=== PATIENT | female | born 1975 | race Caucasian/White ===

== ENCOUNTER 2021-04-20 10:01 | Emergency (ER) | payer OTHER, SELFPAY ==
[2021-04-20 10:14] VITALS: BP 136/88; PULSE 92; RESP 16; TEMP 37.2; O2SAT 100
--- NOTE | 2021-04-20 10:19 | ED.GENADULT ---
HPI - General Adult General Chief complaint: Skin/Abscess/Foreign Body Stated complaint: shingles Time Seen by Provider: 04/20/21 10:19 Source: patient and RN notes reviewed Mode of arrival: ambulatory Limitations: no limitations History of Present Illness HPI narrative: 45-year-old female presents with complaints of a cluster of scabbed over lesions with pain, redness, and itching throughout the back for the past 21 days. ?Bushra reports increasing symptoms over the past 1.5 week with intermittent drainage and mild warmth. ?Psoriasis cream without relief. ?Denies new detergent or personal hygiene products. ?No new foods or medications. ?No swelling or bleeding. ?Denies fever or chills, headaches, weakness, fatigue, myalgia, facial swelling, or tongue swelling. ?Denies chest pain or dyspnea. ?Remains active. The patient reports she has not been diagnosed with COVID-19. ?The patient reports she is not waiting for the results of a COVID-19 lab test. ?The patient reports she does not have a new or worsening cough. ?The patient reports she does not have any rhinorrhea, congestion, sore throat, loss of taste or smell, nausea, vomiting, abdominal pain, and diarrhea. ?Tolerating po intake well. ?Denies recent traveling. ?Denies concerns for COVID-19 or exposures. ?At this time, the patient is not suspected of having COVID-19. Some parts of this dictation were generated by voice recognition software and may contain typographical and/or grammatical inaccuracies. Related Data Home Medications Medication Instructions Recorded Confirmed buspirone 7.5 mg PO BID 04/20/21 04/20/21 escitalopram oxalate 10 mg PO DAILY 04/20/21 04/20/21 Allergies Allergy/AdvReac Type Severity Reaction Status Date / Time No Known Allergies Allergy Verified 04/20/21 10:34 Review of Systems Review of Systems: CONSTITUTIONAL: Denies fever, chills, sweats. EYES: Denies visual changes, redness, discharge. ENT: Denies rhinorrhea, congestion, sore throat, otalgia. CARDIOVASCULAR: Denies chest pain, palpitations, edema. RESPIRATORY: Denies dyspnea, wheezing, cough. GASTROINTESTINAL: Denies abdominal pain, nausea, vomiting, diarrhea. SKIN: Complaints of a cluster of scabbed over lesions with pain, redness, itching, intermittent drainage, and warmth. MUSCULOSKELETAL: Denies acute back pain, joint pain, or myalgia. NEUROLOGIC: Denies numbness or focal weakness. PSYCHIATRIC: Denies anxiety or depression. All other systems reviewed are negative, except as documented in HPI and below. [facility] Past Medical History Medical History (Updated 04/23/21 @ 01:03 by LG Stovall) Psoriasis Surgical History Surgical History (Updated 04/23/21 @ 01:03 by LG Stovall) History of tubal ligation Family History Family History (Updated 04/23/21 @ 01:05 by LG Stovall) Father Diabetes mellitus Mother Alive and well Social History Social History (Updated 04/23/21 @ 01:07 by LG Stovall) Smoking packs per day: 1 Smoking cigarettes per day: 20.0 Years smoked: 20 Smoking pack-years: 20.00 Smoking status: Current every day smoker Tobacco type: cigarettes Second hand tobacco smoke exposure: Yes Alcohol intake: current Substance use: never Substance use type: does not use Living arrangements: with family Occupation/Education: occupation Gender identity (if verbalized by the patient): Female Sexual Orientation (if Verbalized by the Patient): Straight or Heterosexual Comments At time of signature, agree with the nurse past medical, surgical, social, and family history. There is no relevant family history pertinent to the presenting complaint. Exam Narrative: GENERAL: This is a well-nourished, well-developed patient, in no apparent distress. Talks in full sentences and ambulates with steady gait without dyspnea. HEAD: Normocephalic, atraumatic. EYES: PERRL. Sclera clear/white. Vision is g
--- NOTE | 2021-04-20 11:33 | PC.NURSE ---
Received fax from [employer] that pts insurance requiring prior authorization for mupirocin ointment. Called and discussed with pt cost of medication through [employer] at different local pharmacies. Pt ok with still getting mediation at [facility]. Pt instructed how to access coupon information that pharmacy will need to run prescription through to get discount. Pt verbalized understanding of how to access [facility] info.
== END 2021-04-20 10:39 | disposition home or self-care (01) ==
PROVIDERS: Emergency Provider Nurse Practitioner Family; PCP Nurse Practitioner Family
DX: L01.00 Impetigo, unspecified (principal); F17.210 Nicotine dependence, cigarettes, uncomplicated; L40.9 Psoriasis, unspecified
CPT/HCPCS: 99213; G0463

== ENCOUNTER 2023-01-08 09:28 | Emergency (ER) | payer OTHER, SELFPAY ==
[2023-01-08 09:38] VITALS: BP 150/86; PULSE 97; RESP 20; TEMP 36.6; O2SAT 99
--- NOTE | 2023-01-08 10:01 | ED.URI ---
HPI - URI/Sore Throat General Chief Complaint: Upper Respiratory Infection Stated Complaint: Sore Throat Time Seen by Provider: 01/08/23 09:54 Source: patient Mode of arrival: ambulatory Limitations: no limitations History of Present Illness HPI Narrative: Patient presents today complaining of an itchy and sore throat since yesterday with congestion, rhinorrhea, and postnasal drip. Denies cough. She has been taking ibuprofen with relief of the sore throat. History of seasonal allergies for which she occasionally takes [id number] allergy medicine. Denies history of asthma. Works in a school. Related Data Home Medications Medication Instructions Recorded Confirmed buspirone 7.5 mg tablet 7.5 mg PO BID 04/20/21 01/08/23 escitalopram oxalate 10 mg tablet 10 mg PO DAILY 04/20/21 01/08/23 Allergies Allergy/AdvReac Type Severity Reaction Status Date / Time No Known Allergies Allergy Verified 01/08/23 09:45 Review of Systems Review of Systems: CONSTITUTIONAL: Denies body aches, fever, chills, or sweats. EYES: Denies visual changes, redness, or discharge. ENT: Denies otalgia.+ rhinorrhea, congestion, sore throat, postnasal drip CARDIOVASCULAR: Denies chest pain, palpitations, or edema. RESPIRATORY: Denies cough or dyspnea. GASTROINTESTINAL: Denies abdominal pain, nausea, vomiting, or diarrhea. GENITOURINARY: Denies dysuria or hematuria. SKIN: Denies rash, itching, or wounds. MUSCULOSKELETAL: Denies back pain, joint pain, or myalgia. NEUROLOGIC: Denies headache, numbness, tingling, or weakness. PSYCH: Denies depression or anxiety. [facility] Past Medical History Medical History Psoriasis Surgical History Surgical History History of tubal ligation Family History Family History Father Diabetes mellitus Mother Alive and well Social History Social History Smoking packs per day: 1 Smoking cigarettes per day: 20.0 Years smoked: 20 Smoking pack-years: 20.00 Smoking status: Current every day smoker Tobacco type: cigarettes Second hand tobacco smoke exposure: Yes Alcohol intake: current Substance use: never Substance use type: does not use Living arrangements: with family Occupation/Education: occupation Gender identity (if verbalized by the patient): Female Sexual Orientation (if Verbalized by the Patient): Straight or Heterosexual Comments At time of signature, I have reviewed and agree with nursing past medical, surgical, social and family history unless otherwise noted. Please see nursing chart for further information. There is no relevant family history pertinent to the presenting complaint Exam Narrative: GENERAL: Well-appearing, well-nourished, and in no acute distress. HEAD: Normocephalic, atraumatic. EYES: EOMI. No redness or drainage. Conjunctivae normal. ENT: Mucous membranes pink and moist. Nares congested with rhinorrhea. TMs normal bilaterally. Throat mildly erythematous without edema or exudate. Uvula midline. NECK: Normal AROM. Supple. No lymphadenopathy. CHEST: No respiratory distress. Clear to auscultation. HEART: Regular rate and rhythm. No murmur appreciated. Normal peripheral pulses. EXTREMITIES: Normal range of motion. No edema. SKIN: Warm, dry, no rash. Capillary refill normal. Normal skin turgor. NEURO: No focal deficits. Alert and oriented x3. Gait steady. PSYCH: Normal affect. No signs of depression or anxiety. Course Course Level of Care: Express Care Visit Vital Signs Vital signs: Vital Signs Temperature 97.9 F 01/08/23 09:38 Pulse Rate 97 01/08/23 09:38 Respiratory Rate 20 01/08/23 09:38 Blood Pressure 150/86 H 01/08/23 09:38 Pulse Oximetry 99 01/08/23 09:38 Oxygen D
== END 2023-01-08 10:11 | disposition home or self-care (01) ==
PROVIDERS: Emergency Provider Nurse Practitioner; PCP Nurse Practitioner Family
DX: J30.2 Other seasonal allergic rhinitis (principal); F17.210 Nicotine dependence, cigarettes, uncomplicated; L40.9 Psoriasis, unspecified
CPT/HCPCS: 87081; 87880; 99213; G0463

== ENCOUNTER 2024-06-27 08:44 | Emergency (ER) | payer OTHER, SELFPAY ==
--- NOTE | ~2024-06-27 | XR_ITS ---
XR chest 2V Ordering provider: Genia Rose APRN History: 48 years Female with . chest palpitations . Comparison: June 09, 2017 FINDINGS: MEDIASTINUM: The cardiac silhouette is not enlarged. LUNGS: No infiltrates, effusions or pneumothorax. OTHER: No free air under the diaphragm. IMPRESSION: No acute cardiopulmonary pathology. Reviewed, dictated and finalized at location A.
[2024-06-27 08:53] VITALS: BP 174/106; PULSE 94; RESP 16; O2SAT 100
--- NOTE | 2024-06-27 09:32 | ECG_ITS ---
Test Date: 2024-06-27 09:54:03 Measurements Intervals [place] Rate: 82 P: 16 NV: 176 QRS: 69 QRSD: 76 T: 20 QT: 379 QTc: 443 Interpretive Statements SINUS RHYTHM No previous ECG available for comparison Electronically Signed On 06-27-2024 12:40:52 CDT by Wu Chong M.D.
[2024-06-27 09:35] VITALS: BP 153/91; PULSE 76; RESP 15; TEMP 36.9; O2SAT 100
[2024-06-27] MEDS: SODIUM CHLORIDE 0.9% IV 1,000 ML 999 ML IV CONT (09:46)
--- NOTE | 2024-06-27 09:46 | ED.DIZZY ---
HPI - Dizziness General Chief Complaint: Recheck/Abnormal Lab/Rx Stated Complaint: HTN Time Seen by Provider: 06/27/24 09:01 History of Present Illness HPI Narrative: Patient is a 48-year-old female who presents to the ER with dizziness that started this morning. She reports she was at work and started feeling lightheaded. Patient went down to the school nurse who took her blood pressure and told her it was high. She reports this made her panicky and she thinks she started to have a panic attack. Patient reports her heart rate went up and she had some palpitations but no shortness of breath. She reports she has history of neuropathy, and vertigo, but this feels different. Patient reports she drinks very little water during the day, but reports she drinks alcohol most days of the week. She is an everyday smoker. Patient has never been diagnosed with blood pressure or COPD. She denies current chest pain, shortness a breath, or other signs/symptoms of illness. Related Data Home Medications Medication Instructions Recorded Confirmed buspirone 7.5 mg tablet 7.5 mg PO BID 04/20/21 01/08/23 escitalopram oxalate 10 mg tablet 10 mg PO DAILY 04/20/21 01/08/23 Allergies Allergy/AdvReac Type Severity Reaction Status Date / Time No Known Allergies Allergy Verified 06/27/24 09:11 Review of Systems Review of Systems: All systems reviewed & are unremarkable except as noted in HPI and below PMFSH Past Medical History Medical History Psoriasis Surgical History Surgical History History of tubal ligation Family History Family History Father Diabetes mellitus Mother Alive and well Social History Social History Smoking packs per day: 1 Smoking cigarettes per day: 20.0 Years smoked: 20 Smoking pack-years: 20.00 Smoking status: Current every day smoker Tobacco type: cigarettes Second hand tobacco smoke exposure: Yes Alcohol intake: current Substance use: never Substance use type: does not use Living arrangements: with family Occupation/Education: occupation Gender identity (if verbalized by the patient): Female Sexual Orientation (if Verbalized by the Patient): Straight or Heterosexual Exam Narrative: GENERAL: Well appearing, well-nourished, non-toxic, in no acute distress. HEAD: Normocephalic, atraumatic. NECK: Supple. No adenopathy, no masses. RESPIRATORY: Airway patent, respirations nonlabored. Clear to auscultation bilaterally, no rales, rhonchi, wheezing. CARDIOVASCULAR: Regular rate and rhythm without murmurs, rubs, or gallops. Peripheral pulses 2+ and equal bilaterally. ABDOMINAL: Soft, nontender, nondistended, no hepatosplenomegaly. Normoactive BS. MUSCULOSKELETAL: Moves all extremities. Strength/ROM intact without gross deformities. SKIN: Warm, dry, normal color. No rashes. NEURO: A&O X3. Speech clear. Cranial nerves II-XII grossly intact. Steady gait. No ataxic movements. PSYCHIATRIC: Appropriate mood and affect. Normal interaction. Course Vital Signs Vital signs: Vital Signs Pulse Rate 94 06/27/24 08:53 Respiratory Rate 16 06/27/24 08:53 Blood Pressure 174/106 H 06/27/24 08:53 Pulse Oximetry 100 06/27/24 08:53 Oxygen Delivery Room Air 06/27/24 08:53 Temperature 36.9 C 06/27/24 09:35 Pulse Rate 89 06/27/24 10:04 Respiratory Rate 15 06/27/24 09:35 Blood Pressure 148/92 H 06/27/24 10:04 Pulse Oximetry 100 06/27/24 09:35 Oxygen Delivery Room Air 06/27/24 08:53 MDM - Dizziness MDM Narrative Medical decision making narrative: Patient is a 48-year-old female who presents to the ER with dizziness that started this morning. She reports she was at work and started feeling lighthead
[2024-06-27 09:54] LABS: Basophils Absolute Auto 0.1 K/mm3 (0.0-0.1); Basophils Percent Auto 1.4 % (0.2-1.2); Eosinophils Absolute Auto 0.2 K/mm3 (0-0.3); Eosinophils Percent Auto 1.6 % (0-4.4); Hematocrit 42.1 % (37.0-47.0); Hemoglobin 14.5 g/dL (12.0-15.0); Immature Granulocyte Absolute 0.06 K/mm3 (0.00-0.031); Immature Granulocyte Percent A 0.7 % (0-0.5); Lymphocytes Absolute Auto 1.52 K/mm3 (0.9-3.2); Lymphocytes Percent Auto 16.5 % (18.3-44.2); Mean Corpuscular HGB Conc 34.4 g/dl (32-36); Mean Corpuscular Hemoglobin 33.8 pg (26-34); Mean Corpuscular Volume 98.1 fl (80-100); Mean Platelet Volume 10.4 fl (7.4-10.4); Monocytes Absolute Auto 0.6 K/mm3 (0.1-0.6); Monocytes Percent Auto 6.9 % (2.6-8.5); Neutrophils Absolute Auto 6.7 K/mm3 (1.3-6.7); Neutrophils Percent Auto 72.9 % (45.5-73.1); Platelet Count Result 196 k/mm3 (150-375); Red Blood Count 4.29 M/mm3 (4.2-5.4); Red Cell Distribution Width 13.1 % (11.5-14.5); White Blood Count 9.2 K/mm3 (4.5-10.0)
[2024-06-27 09:58] LABS: BEDSIDEPREGUCG Negative (Negative)
[2024-06-27 10:01] VITALS: BP 154/92; PULSE 80
[2024-06-27 10:03] VITALS: BP 157/90; PULSE 94
[2024-06-27 10:04] VITALS: BP 148/92; PULSE 89
[2024-06-27 10:04] LABS: INR 0.9; Lactic Acid Reflex 1.1 mmol/L (0.7-2.0); Prothrombin Time 12.2 Seconds (11.1-14.7)
[2024-06-27 10:05] LABS: Partial Thromboplastin Time 26.5 Seconds (22.3-36.8)
[2024-06-27 10:09] LABS: Alanine Aminotransferase 25 U/L (6-35); Albumin Level 4.6 g/dL (3.5-5.1); Alkaline Phosphatase 64 U/L (38-126); Anion Gap 9 mmol/L (4-12); Aspartate Amino Transferase 43 U/L (14-36); Bilirubin,Total 0.4 mg/dL (0.2-1.3); Blood Urea Nitrogen 5 mg/dL (7-17); Calcium 9.3 mg/dL (8.4-10.2); Carbon Dioxide 21 mmol/L (22-30); Chloride 104 mmol/L (98-107); Estimated Glomerular Filt Rate > 60; Glucose 97 mg/dL (65-110); Magnesium 1.9 mg/dL (1.6-2.3); Sodium 134 mmol/L (137-145)
[2024-06-27 10:10] LABS: D Dimer 0.45 ug/mL (<0.48)
[2024-06-27 10:12] LABS: Add Urine Microscopic? YES; Appearance Urine Cloudy (Clear); Bacteria Urine Rare /hpf; Bilirubin Urine Negative (Negative); Blood Urine Negative (Negative); Color Urine Yellow (Yellow); Glucose Urine UA Negative (Negative); Ketones Urine Negative (Negative); Leukocyte Esterase Ur 1+ LEU/UL (Negative); Need Manual Microscopic Reviewed; Nitrate Urine Negative (Negative); Non Pathogenic Casts 0-2; Protein Urine Negative (Negative); RBC Urine 0-2 /hpf (0-2); Specific Grav Ur 1.005 (1.001-1.035); Squamous Epithelial Cell Urine Moderate /hpf (Few); Urobilinogen Urine 0.2 mg/dL (<2.0); WBC Urine 0-5 /hpf (0-3); pH Urine 5.5 (5.0-9.0)
[2024-06-27 10:16] LABS: Amphetamine Screen Urine Negative (Negative); Barbiturate Screen Urine Negative (Negative); Benzodiazepines Screen Urine Negative (Negative); Cannabinoid Screen Urine Negative (Negative); Cocaine Screen Urine Negative (Negative); Methadone Screen Urine Negative (Negative); Opiate Screen Urine Negative (Negative); Phencyclidine Screen Urine Negative (Negative)
[2024-06-27 10:20] LABS: NT Pro B Type Natriuretic Pept 171 pg/mL (19.9-100); Troponin I < 0.012 ng/mL (0.000-0.034)
[2024-06-27 10:31] LABS: Influenza A QL RT-PCR Negative (Negative); Influenza B QL RT-PCR Negative (Negative); RSV RNA, RT-PCR Negative (Negative); SARS-CoV-2 RNA PCR Negative (Negative)
[2024-06-27] MEDS: MECLIZINE HCL 25 MG TABLET PO (11:22)
== END 2024-06-27 11:31 | disposition home or self-care (01) ==
PROVIDERS: Emergency Provider Registered Nurse; PCP Family Medicine
DX: E86.0 Dehydration (principal); H81.10 Benign paroxysmal vertigo, unspecified ear; I10 Essential (primary) hypertension; Z20.822 Contact with and (suspected) exposure to COVID-19; F17.210 Nicotine dependence, cigarettes, uncomplicated
CPT/HCPCS: 36415; 71046; 80053; 80307; 81001; 81025; 83605; 83735; 83880; 84484; 85025; 85380; 85610; 85730; 87086; 87637; 93005; 96360; 99284; A9270; J7030

== ENCOUNTER 2025-01-23 09:47 | Emergency (ER) | payer SELFPAY ==
--- NOTE | ~2025-01-23 | XR_ITS ---
Portable chest x-ray Comparison: 06/27/2024 Clinical History: Weakness Findings: Lungs are clear, without focal consolidation or pleural effusion. Cardiomediastinal silho uette is stable. Bones and soft tissues are unremarkable. Impression: Normal chest. Reviewed, dictated and finalized at location . Impression: Normal chest.
--- NOTE | ~2025-01-23 | CT_ITS ---
CT brain wo con Ordering provider: Dmitry Philip MD History: 49 years Female with . headache, blurry vision . Comparison: None. Technique: CT of the head without contrast. Radiation reduction technique utilized.The dose-length pr oduct was 529.67 mGy-cm. FINDINGS: BRAIN PARENCHYMA AND CSF SPACES: No midline shift, mass effect or hemorrhage. The brain parenchyma a nd CSF spaces are otherwise normal. VISUALIZED PARANASAL SINUSES: Well aerated. MASTOIDS: Well aerated. BONES: The bones appear intact. SOFT TISSUES: Visualized nasopharynx is normal. Superficial soft tissues are normal. IMPRESSION: No acute intracranial findings. Reviewed, dictated and finalized at location A.
[2025-01-23 09:50] VITALS: BP 172/124; PULSE 88; RESP 16; TEMP 36.6; O2SAT 100
--- NOTE | 2025-01-23 10:31 | ECG_ITS ---
Test Date: 2025-01-23 10:38:27 Measurements Intervals [place] Rate: 79 P: 17 NV: 183 QRS: 60 QRSD: 74 T: 23 QT: 388 QTc: 446 Interpretive Statements SINUS RHYTHM Compared to ECG 06/27/2024 09:54:03 No significant changes Electronically Signed On 01-23-2025 15:02:41 CDT by Wu Chong M.D.
[2025-01-23 10:36] VITALS: BP 160/95; PULSE 81; RESP 14; O2SAT 100
[2025-01-23 10:41] LABS: Glucose Point of Care 98 mg/dl (65-105)
[2025-01-23 10:43] LABS: Basophils Absolute Auto 0.1 K/mm3 (0.0-0.1); Basophils Percent Auto 1.1 % (0.2-1.2); Eosinophils Absolute Auto 0.1 K/mm3 (0-0.3); Eosinophils Percent Auto 1.4 % (0-4.4); Hematocrit 41.2 % (37.0-47.0); Hemoglobin 13.6 g/dL (12.0-15.0); Immature Granulocyte Absolute 0.04 K/mm3 (0.00-0.031); Immature Granulocyte Percent A 0.4 % (0-0.5); Lymphocytes Absolute Auto 1.87 K/mm3 (0.9-3.2); Mean Corpuscular Hemoglobin 32.5 pg (26-34); Mean Corpuscular Volume 98.6 fl (80-100); Mean Platelet Volume 10.2 fl (7.4-10.4); Monocytes Absolute Auto 0.6 K/mm3 (0.1-0.6); Monocytes Percent Auto 6.6 % (2.6-8.5); Neutrophils Absolute Auto 6.6 K/mm3 (1.3-6.7); Neutrophils Percent Auto 70.5 % (45.5-73.1); Platelet Count Result 231 k/mm3 (150-375); Red Blood Count 4.18 M/mm3 (4.2-5.4); Red Cell Distribution Width 12.7 % (11.5-14.5); White Blood Count 9.4 K/mm3 (4.5-10.0)
[2025-01-23 10:46] LABS: BEDSIDEPREGUCG Negative (Negative)
[2025-01-23 10:49] VITALS: PULSE 77
[2025-01-23 10:53] VITALS: BP 158/97; PULSE 81; RESP 14; O2SAT 99
[2025-01-23 10:54] LABS: Alanine Aminotransferase 24 U/L (6-35); Albumin Level 4.5 g/dL (3.5-5.1); Alkaline Phosphatase 66 U/L (38-126); Anion Gap 10 mmol/L (4-12); Aspartate Amino Transferase 36 U/L (14-36); Bilirubin,Total 0.4 mg/dL (0.2-1.3); Blood Urea Nitrogen 4 mg/dL (7-17); Calcium 8.9 mg/dL (8.4-10.2); Carbon Dioxide 21 mmol/L (22-30); Chloride 102 mmol/L (98-107); Estimated CRCL calculation 88 ml/min; Estimated Glomerular Filt Rate > 60; Glucose 101 mg/dL (65-110); Sodium 133 mmol/L (137-145)
--- NOTE | 2025-01-23 11:07 | ED.HA ---
HPI - Headache General Chief Complaint: Headache Stated Complaint: h/a, trouble walking started at 0900 Time Seen by Provider: 01/23/25 11:05 Source: patient and family Mode of arrival: ambulatory Limitations: no limitations History of Present Illness HPI Narrative: 49 YEARS OLD WHITE FEMALE CAME TO THE ED BY PRIVATE CAR WITH SUDDEN ONSET OF WHAT SHE CALL IT BRAIN GLITCH, WEAKNESS AND HEAVINESS OF THE LOWER EXTREMITIES, JITTERY FEELING INSIDE, SHAKING OUTSIDE, FEELING TIRED AND WEAK ALL OVER STARTED AT 9:00 A.M. BEFORE GOING TO WORK. PATIENT HAVE A LOT OF STRESS AT WORK LATELY. HISTORY OF ANXIETY AND DEPRESSION. SHE DENIES ANY FEVER, CHILLS, NAUSEA, VOMITING, DIARRHEA, CONSTIPATION, CHEST PAIN OR SHORTNESS OF BREATH. PATIENT'S SYMPTOMS ALMOST DONE ON ARRIVAL TO THE ED. Related Data Home Medications ?Medication ?Instructions ?Recorded ?Confirmed ?Last Taken ?Type buspirone 7.5 mg tablet 7.5 mg PO BID 04/20/21 01/08/23 Unknown History escitalopram oxalate 10 mg tablet 10 mg PO DAILY 04/20/21 01/08/23 Unknown History Allergies Allergy/AdvReac Type Severity Reaction Status Date / Time No Known Allergies Allergy Verified 01/23/25 09:52 Review of Systems Review of Systems: All systems reviewed & are unremarkable except as noted in HPI and below PMFSH Past Medical History Medical History Psoriasis Surgical History Surgical History History of tubal ligation Family History Family History Father Diabetes mellitus Mother Alive and well Social History Social History Smoking packs per day: 1 Smoking cigarettes per day: 20.0 Years smoked: 20 Smoking pack-years: 20.00 Smoking status: Current every day smoker Tobacco type: cigarettes Second hand tobacco smoke exposure: Yes Alcohol intake: current Substance use: never Substance use type: does not use Living arrangements: with family Occupation/Education: occupation Gender identity (if verbalized by the patient): Female Sexual Orientation (if Verbalized by the Patient): Straight or Heterosexual Exam Narrative: GENERAL APPEARANCE: WELL-DEVELOPED, WELL-NOURISHED SKIN: NORMAL COLOR HEAD: NORMOCEPHALIC, NONTRAUMATIC EYES: CLEAR CONJUNCTIVA ENT: OROPHARYNX NORMAL, EARS NORMAL, NOSE NORMAL NECK: SUPPLE, NONTENDER CHEST AND RESPIRATORY: AIRWAY PATENT, NO RESPIRATORY DISTRESS, NO ACCESSORY MUSCLE USE HEART: REGULAR RATE/RHYTHM ABDOMEN: SOFT, NONTENDER, NO ORGANOMEGALY, QUIET BOWEL SOUNDS VASCULAR: NORMAL PERIPHERAL PULSES, NORMAL CAPILLARY REFILL. MUSCULOSKELETAL: NORMAL RANGE OF MOTION, NONTENDER BACK NEUROLOGIC: ALERT AND ORIENTED ?3, DEVELOPER DESIGNER IS NORMAL TESTED, NO GROSS MOTOR DEFICIT Course Vital Signs Vital signs: Vital Signs Temperature 36.6 C 01/23/25 09:50 Pulse Rate 88 01/23/25 09:50 Respiratory Rate 16 01/23/25 09:50 Blood Pressure 172/124 H 01/23/25 09:50 Pulse Oximetry 100 01/23/25 09:50 Oxygen Delivery Room Air 01/23/25 09:50 Temperature 36.6 C 01/23/25 09:50 Pulse Rate 72 01/23/25 11:52 Respiratory Rate 12 01/23/25 11:52 Blood Pressure 153/98 H 01/23/25 11:52 Pulse Oximetry 100 01/23/25 11:52 Oxygen Delivery Room Air 01/23/25 09:50 MDM - Headache MDM Narrative Medical decision making narrative: PATIENT CAME TO THE ED WITH HEADACHE VITAL SIGNS SHOWING BLOOD PRESSURE 172/124 OTHERWISE WITHIN NORMAL LIMIT PHYSICAL EXAMINATION IS UNREMARKABLE DIFFERENTIAL DIAGNOSIS INCLUDE ANXIETY RELATED SYMPTOMS, UNCONTROLLED HYPERTENSION SECONDARY TO NOT TAKING HER MEDICATION, INTRACRANIAL PATHOLOGY, URINARY TRACT INFECTION, ELECTROLYTE IMBALANCE, DEHYDRATION BLOOD WORKUP TODAY INCLUDES CBC, CMP, TROPONIN SHOWED SODIUM 133, OTHERWISE WITHIN NORMAL LIMIT URINALYSIS SHOWED EVIDENCE OF INFECTION CHEST X-RAY SHOWED NO ACUTE ABNORMALITY CT HEAD WITHOUT CONTRAST SHOWED DIAGNOSIS ANXIETY LIKE SYMPTOMS, URINARY TRACT INFECTION DISCHARGED ON MACROBID, THE PT WAS DISCHARGED TO HOME.THE PT,S CONDITION UPON DISCHARGE WAS FAIR,EDUCATION WAS PROVIDED TO THE PT IN REFERENCE TO THE FINAL IMPRESSION,DISCHARGE STUDY RESULTS,TREATMENT,PROGNOSIS AND NEED FOR FOLLOW UP . Differential Diagnosis Differential diagnosis: Likely other ( ABOVE) Medical Records Attestation: I reviewed the patient's medical records. Lab Data Attestation: I reviewed the patient's lab results. 01/23/25 10:35 01/23/25 10:35 Labs: Lab Results 05/13/25 05/13/25 05/13/25 Range/Units 10:33 10:35 10:45 WBC 9.4 (4.5-10.0) K/mm3 RBC 4.18 L (4.2-5.4) M/mm3 Hgb 13.6 (12.0-15.0) g/dL Hct 41.2 (37.0-47.0) % MCV 98.6 (80-100) fl MCH 32.5 (26-34) pg MCHC 33.0 (32-36) g/dl RDW 12.7 (11.5-14.5) % Plt Count 231 (150-375) k/mm3 MPV 10.2 (7.4-10.4) fl Immature Gran % (Auto) 0.4 (0-0.5) % Neut % (Auto) 70.5 (45.5-73.1) % Lymph % (Auto) 20.0 (18.3-44.2) % [place] % (Auto) 6.6 (2.6-8.5) % Eos % (Auto) 1.4 (0-4.4) % Baso % (Auto) 1.1 (0.2-1.2) % Lymph # (Auto) 1.87 (0.9-3.2) K/mm3 [place] # (Auto) 0.6 (0.1-0.6) K/mm3 Eos # (Auto) 0.1 (0-0.3) K/mm3 Baso # (Auto) 0.1 (0.0-0.1) K/mm3 Abs Immat Gran (auto) 0.04 H (0.00-0.031) K/mm3 Absolute Neuts (auto) 6.6 (1.3-6.7) K/mm3 Absolute Nucleated RBC 0.000 (0.0-0.012) K/mm3 Nucleated RBC % 0.0 (0.0-0.2) % Sodium 133 L (137-145) mmol/L Potassium 4.0 (3.4-5.0) mmol/L Chloride 102 (98-107) mmol/L Carbon Dioxide 21 L (22-30) mmol/L Anion Gap 10 (4-12) mmol/L BUN 4 L (7-17) mg/dL Creatinine 0.54 L (0.7-1.0) mg/dL Estim Creat Clear Calc 88 ml/min Estimated GFR > 60 (59 - ) Glucose 101 (65-110) mg/dL POC Capillary Glucose 98 (65-105) mg/dl Calcium 8.9 (8.4-10.2) mg/dL Total Bilirubin 0.4 (0.2-1.3) mg/dL AST 36 (14-36) U/L ALT 24 (6-35) U/L Alkaline Phosphatase 66 (38-126) U/L Troponin I < 0.012 (0.000-0.034) ng/mL Total Protein 7.0 (6.3-8.2) g/dL Albumin 4.5 (3.5-5.1) g/dL Urine Color (Yellow) Urine Appearance (Clear) Urine pH (5.0-9.0) Ur Specific [place] (1.001-1.035) Urine Protein (Negative) mg/dL Urine Glucose (UA) (Negative) mg/dL Urine Ketones (Negative) mg/dL Ur Blood (Man) (Negative) Urine Nitrate (Negative) Urine Bilirubin (Negative) Urine Urobilinogen (<2.0) mg/dL Add Ur Microanalysis Leukocyte Esterase Rfl (Negative) RAF/UL Urine RBC (0-2) /hpf Urine WBC (0-3) /hpf Ur Squamous Epith Cells (Few) /hpf Urine Bacteria /hpf Urine Casts POC Urine HCG, Qual Negative (Negative) 01/23/25 Range/Units 10:47 WBC (4.5-10.0) K/mm3 RBC (4.2-5.4) M/mm3 Hgb (12.0-15.0) g/dL Hct (37.0-47.0) % MCV (80-100) fl MCH (26-34) pg MCHC (32-36) g/dl RDW (11.5-14.5) % Plt Count (150-375) k/mm3 MPV (7.4-10.4) fl Immature Gran % (Auto) (0-0.5) % Neut % (Auto) (45.5-73.1) % Lymph % (Auto) (18.3-44.2) % [place] % (Auto) (2.6-8.5) % Eos % (Auto) (0-4.4) % Baso % (Auto) (0.2-1.2) % Lymph # (Auto) (0.9-3.2) K/mm3 [place] # (Auto) (0.1-0.6) K/mm3 Eos # (Auto) (0-0.3) K/mm3 Baso # (Auto) (0.0-0.1) K/mm3 Abs Immat Gran (auto) (0.00-0.031) K/mm3 Absolute Neuts (auto) (1.3-6.7) K/mm3 Absolute Nucleated RBC (0.0-0.012) K/mm3 Nucleated RBC % (0.0-0.2) % Sodium (137-145) mmol/L Potassium (3.4-5.0) mmol/L Chloride (98-107) mmol/L Carbon Dioxide (22-30) mmol/L Anion Gap (4-12) mmol/L BUN (7-17) mg/dL Creatinine (0.7-1.0) mg/dL Estim Creat Clear Calc ml/min Estimated GFR (59 - ) Glucose (65-110) mg/dL POC Capillary Glucose (65-105) mg/dl Calcium (8.4-10.2) mg/dL Total Bilirubin (0.2-1.3) mg/dL AST (14-36) U/L ALT (6-35) U/L Alkaline Phosphatase (38-126) U/L Troponin I (0.000-0.034) ng/mL Total Protein (6.3-8.2) g/dL Albumin (3.5-5.1) g/dL Urine Color Yellow (Yellow) Urine Appearance Cloudy H (Clear) Urine pH 5.5 (5.0-9.0) Ur Specific [place] 1.004 (1.001-1.035) Urine Protein Negative (Negative) mg/dL Urine Glucose (UA) Negative (Negative) mg/dL Urine Ketones Negative (Negative) mg/dL Ur Blood (Man) 1+ H (Negative) Urine Nitrate Negative (Negative) Urine Bilirubin Negative (Negative) Urine Urobilinogen 0.2 (<2.0) mg/dL Add Ur Microanalysis Reviewed Leukocyte Esterase Rfl 2+ H (Negative) RAF/UL Urine RBC 0-2 (0-2) /hpf Urine WBC 11-20 H (0-3) /hpf Ur Squamous Epith Cells Moderate (Few) /hpf Urine Bacteria 1+ H /hpf Urine Casts 0-2 POC Urine HCG, Qual (Negative) Imaging Data Radiologist's impression: Impressions Chest X-Ray 01/23/25 11:00 Impression: Normal chest. Head CT 01/23/25 11:20 IMPRESSION: No acute intracranial findings. Critical Care Time Critical Care Time Critical Care Time: No Discharge Plan Discharge Clinical Impression: Stress, Urinary tract infection Patient Disposition: Home Condition: Improved Instructions: Antibiotic Form, Urinary Tract Infection in Women (ED), Stress (ED) Additional Instructions: RETURN IF SYMPTOMS ARE WORSENING , CALL YOUR FAMILY PHYSICIAN FOR APPOINTMENT, TAKE TYLENOL NEEDED FOR ACHES AND PAIN, CONTINUE HOME MEDICATIONS. Patient Language: Kyrgyz Prescriptions: New nitrofurantoin monohyd/m-cryst [Macrobid] 100 mg capsule 100 mg PO Q12H 5 Days Qty: 10 0RF Rx Instructions: must administer with a meal/food No Action buspirone 7.5 mg tablet 7.5 mg PO BID escitalopram oxalate 10 mg tablet 10 mg PO DAILY meclizine 25 mg tablet 25 mg PO BID PRN (Reason: dizziness) Qty: 10 0RF Follow-up/Referrals: Castillo,MD R[place] [Primary Care Provider] - Stand Alone Forms: Work/School Release IP
[2025-01-23 11:08] LABS: Troponin I < 0.012 ng/mL (0.000-0.034)
[2025-01-23 11:23] LABS: Add Urine Microscopic? YES; Appearance Urine Cloudy (Clear); Bacteria Urine 1+ /hpf; Bilirubin Urine Negative (Negative); Blood Urine 1+ (Negative); Color Urine Yellow (Yellow); Glucose Urine UA Negative (Negative); Ketones Urine Negative (Negative); Leukocyte Esterase Ur 2+ LEU/UL (Negative); Need Manual Microscopic Reviewed; Nitrate Urine Negative (Negative); Non Pathogenic Casts 0-2; Protein Urine Negative (Negative); RBC Urine 0-2 /hpf (0-2); Specific Grav Ur 1.004 (1.001-1.035); Squamous Epithelial Cell Urine Moderate /hpf (Few); Urobilinogen Urine 0.2 mg/dL (<2.0); pH Urine 5.5 (5.0-9.0)
--- OUTSIDE RECORDS SUMMARY | 2025-01-23 11:42 | XMS_ITS | Data Portability ---
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 D/w pt and about her findings and further plan of care. Staff to get recent ED records. All questions answered for the pt. Meds as directed. OTC symptomatic Rx and good liquid intake explained in detail. BP diary education given. Advised not to drive for next few days until back to her baseline. Advised pt to get checked in ED if any alarming symptoms/concern s. Pt verbalized understanding it. F/u in 2 weeks. [email or web address] Not available 07/03/2024 17:41:01 07/17/2024 07/17/2024 I have reconciled the patient's medications post their discharge from inpatient facility. D/w pt and about her findings and further plan of care. Staff to get recent ED records. All questions answered for the pt. Meds as directed. OTC symptomatic Rx and good liquid intake explained in detail. BP diary education given. Advised not to drive for next few days until back to her baseline. Advised pt to get checked in ED if any alarming symptoms/concern s. Pt verbalized understanding it. F/u in 2 weeks. Not available 07/17/2024 12:04:01 Plan of Treatment Reminders Order Date Submit Date Provider Last Modified By Organization Details Last Modified Time Details Appointments None recorded. Lab None recorded. Referral None recorded. Procedures None recorded. Surgeries None recorded. Imaging None recorded. Medication Orders meclizine 25 mg tablet 2023 [facility] #[id number], [address], [place], [place], [id number], 14:13:06 metoprolol tartrate 25 mg tablet 2023 [facility] #[id number], [address], [place], [place], [id number], 14:13:37 buspirone 10 mg tablet 2023 [facility] #[id number], [address], [place], [place], [id number], 14:13:33 meclizine 25 mg tablet 2023 [facility] #[id number], [address], [place], [place], [id number], 4 17:20:35 metoprolol tartrate 25 mg tablet 2023 [facility] #61863, [address], [place], [place], [id number], 4 17:20:36 buspirone 10 mg tablet 2023 [facility] #14276, [address], [place], [place], [id number], 4 17:20:34 amoxicillin 875 mg-potassiu m clavulanate 125 mg tablet 2023 [facility] #71936, [address], [place], [place], [id number], 4 17:20:34 prednisone 10 mg tablet 2023 [facility] #[id number], [address], [place], [place], [id number], 17:20:35 Patient TargetsNo targets recorded. Patient Instructions Encounter Date Encounter Id Patient Instructions Last Modified By Organization Details Last Modified Time 07/03/2024 [id number] high blood pressure: care instructions [email or web address] Not available 07/03/2024 17:20:29 dash diet: care instructions [email or web address] Not available 07/03/2024 17:20:29 Thank you for your visit to our office today. We would like to request that you reach out to your referring or previous provider and request that they send us a Summary of Care in electronic form, so that we may have it on file in your medical record. At your visit, we had the medical records we needed to provide you with the best possible care; however, for insurance purposes, an electronic Summary of Care is beneficial. Thank you for your assistance in obtaining this information and we look forward to providing continued care to you. Please review your medication list from the Summary of Care for this visit. If there are any differences from what you are currently taking at home, please call us to discuss. Not available 07/03/2024 17:02:49 07/17/2024 [id number] high blood pressure: care instructions [email or web address] Not available 07/17/2024 14:06:20 dash diet: care instructions [email or web address] Not available 07/17/2024 14:06:20 Reason for Referral None Reported. Results Created Date Observation Date Name Description Value Unit Range Abnormal Flag Note LastModifiedBy Organization Detail LastModifiedTime 01/24/20 25 01/23/2025 sherroni kirt/hari preciado tic resul t No observ ation record ed. [facility] [address], [place], [address], 01/23/2025 12:27:39 Result Notes None recorded. Problems Name Problem SNOMED Code Status Onset Date Resolution Date Notes Provider Name and Address Organization Details Recorded Time Vertigo 665699214 Active 2023 Ryland Chong MD [address] [facility], [facility] [address], [place], [address] [place] [facility] 17:11:56 Anxiety disorder 894284931 Active 2023 Ryland Chong MD [address] [facility], [address], [place], [address], [employer] 4 17:12:21 Hypertensive disorder 26900793 Active 2023 Ryland Chong MD [address] [facility], [address], [place], [address], [employer] 4 17:13:04 Chronic sinusitis 03211191 Active 2023 Ryland Chong MD [address] [facility], [address] [address], [place], [address], [employer] 17:18:46 Cigarette smoker 12262722 Active 2023 Ryland Chong MD [address] [facility], [address] [address], [place], [address], [employer] 17:40:21 Problem Notes None recorded. Procedures Surgical History Date Name Laterality Status Provider Name and Address Organization Details Recorded Time 07/03/2024 Transition al_Care_Ma nagement completed Nimesh Blood [employer] [facility] 07/03/2024 17:02:49 Imaging Results Imaging Date Name Status LastModified by Organiz ation Details LastModified Time 01/23/2025 imaging/diagn ostic result active [facility] [address], [place], [address], 01/23/2025 12:27:39 Procedure Notes None recorded. Medical Equipment None Reported. Allergies No known drug allergies Medications Name Sig Start Date Stop Date Status Note LastModified by Organization Details LastModified Time prednisone 10 mg tablet Take 1 tablet every day by oral route as directed for 7 days. active Not Available Not Available No t Available meclizine 25 mg tablet Take 1 tablet every 8 hours by oral route as needed for 7 days. 2023 active Not Available Not Available Not Avai lable buspirone 10 mg tablet Take 1 tablet twice a day by oral route as needed for 30 days. 2023 active Not Available Not Available Not Avai lable amoxicillin 875 mg-potassium clavulanate 125 mg tablet TAKE 1 TABLET BY MOUTH EVERY 12 HOURS FOR 10 DAYS DIRECTED active Not Available Not Available No t Available metoprolol tartrate 25 mg tablet Take 1 tablet twice a day by oral route as directed for 30 days. 2023 active Not Available Not Available Not Avai lable Vitals Date Recorded Body height Body mass index (BMI) Body weight Body temperature Heart rate Respiratory rate Oxygen saturation Oxygen saturation in Arterial blood by Pulse oximetry Provider Name and Address Organization Details Last Updated DateTime 4 161.29 cm 24.4 kg/m2 88135.2 9 g 98.3 [degF] 78 /min 20 /min 99 % 99 % Nimesh Blood [facility] [employer] 17:08:12 Date Recorded Systolic blood pressure Diastolic blood pressure Provider Name and Address Organization Details Last Updated DateTime 07/03/2024 148 mm[Hg] 80 mm[Hg] Ryland Chong MD [address] [place] [address], [facility] [address], [place], [address], [facility] [employer] 07/03/2024 17:35:51 Date Recorded Body height Body mass index (BMI) Body weight Body temperature Oxygen saturation Oxygen saturation in Arterial blood by Pulse oximetry Heart rate Systolic blood pressure Diastolic blood pressure Provider Name and Address Organization Details Last Updated DateTime 4 161.29 cm 24.1 kg/m2 60374.2 g 98.2 [degF] 97 % 97 % 67 /min 122 mm[Hg] 80 mm[Hg] Linda Benjamin RN [facility] [employer] 12:26:22 Social History Question Answer Notes LastModified by Organizat ion Details LastModified Time Tobacco Smoking Status Current Every Day Smoker Nimesh mcghee [facility] [employer] 07/03/2024 17:25:28 Do You Have An Advance Directive? No Information not available 07/03/2024 Is Blood Transfusion Acceptable In An Emergency? Yes Information not available 07/03/2024 What Is Your Level Of Caffeine Consumption? Occasional Information not available 07/03/2024 What Is Your Code Status? Full Code Information not available 07/03/2024 In The 14 Days Before Symptom Onset, Have You Had Close Contact With A Laboratory-confi rmed COVID-19 While That Case Was Ill? No Information not available 07/03/2024 In The 14 Days Before Symptom Onset, Have You Had Close Contact With A Person Who Is Under Investigation For COVID-19 While That Person Was Ill? No Information not available 07/03/2024 What Type Of Diet Are You Following? REGULAR Information not available 07/03/2024 How Many Days Of Moderate To Strenuous Exercise, Like A Brisk Walk, Did You Do In The Last 7 Days? 2 Information not available 07/03/2024 On Those Days That You Engage In Moderate To Strenuous Exercise, How Many Minutes, On Average, Do You Exercise? -1 Information not available 07/03/2024 Have There Been Any Changes To Your Family Or Social Situation? No Information not available 07/03/2024 What Is The Fluoride Status Of Your Home? Unknown Information not available 07/03/2024 Are There Any Guns Present In Your Home? No Information not available 07/03/2024 Do You Use Insect Repellent Routinely? Yes Information not available 07/03/2024 Where Do You Live? SingleLevelHouse Information not available 07/03/2024 Do You Have A Medical Power Of Physical Chemistry Teacher? No Information not available 07/03/2024 What Is Your Current Pack Years? 20-29packyears Information not available 07/03/2024 Do You Have Any Pets? No Information not available 07/03/2024 What Is Your Relationship Status? Information not available 07/03/2024 Do You Use Your Seat Belt Or Car Seat Routinely? Yes Information not available 07/03/2024 Do You Have Smoke And Carbon Monoxide Detectors In Your Home? No Information not available 07/03/2024 Are You Passively Exposed To Smoke? Yes Information not available 07/03/2024 Are There Any Smokers In Your House? Yes Information not available 07/03/2024 How Much Tobacco Do You Smoke? 0.5 PPD Information not available 07/03/2024 Do You Participate In Social Media? Yes Information not available 07/03/2024 Do You Use Sunscreen Routinely? Yes Information not available 07/03/2024 Have You Recently Traveled Abroad? No Information not available 07/03/2024 Are You Currently In School? No Information not available 07/03/2024 Do You Have Any Dietary Restrictions? No Information not available 07/03/2024 Sex: Female Functional Status Question Answer Note LastModified by Organizat ion Details LastModified Time Do you or have you ever used any other forms of tobacco or nicotine? No Information not available 07/03/2024 Are you currently employed? No Information not available 07/03/2024 What is your exercise level? Occasional Information not available 07/03/2024 Mental Status Question Answer Note LastModified by Organization D etails LastModified Time Do you feel stressed (tense, restless, nervous, or anxious, or unable to sleep at night)? [id number] Information not available 07/03/2024 Family History Nothing Reported. Medical History Condition Response DEPRESSION (INCLUDING POST ) Y Gynecological HistoryNo gynecological history recorded. Obstetrics History GPAL:G 0 P 0 0 0 0 Past Encounters Encounter ID Performer Location Encounter Start Date Encounter Closed Date Diagnosis/Indication Diagnosis SNOMED-CT Code Diagnosis ICD10 Code Diagnosis Note [id number] Ryland Chong MD [address] [address] 07/03/2024 16:54:07 07/03/2024 17:42:46 Transition of care 5385059389 105 Z75.8 [facility] 949445329 Z76.89 Vertigo 721100998 R42 Anxiety disorder 6579055 06 F41.9 Hypertensive disorder 38 420955 I10 Chronic sinusitis 485578 00 J32.9 Cigarette smoker 2238364 7 F17.543 [id number] [facility] [address] [place] [address] 07/17/2024 12:02:43 07/17/2024 14:22:35 Vertigo 752810580 R42 Hypertensive disorder 38 079981 I10 Anxiety disorder 6448823 06 F41.9 Chronic sinusitis 350382 00 J32.9 Cigarette smoker 1492027 7 F17.210 Health Concerns Section Related Observation LastModified by Organization Detai ls LastModified Time None Recorded Concern Status LastModified by Organization Details LastModified Time None Recorded Advance Directives Directive N: Payers Encounter Date Sequence Insurance Name Policy Number Policy Bone Covered Member ID Bone Member ID Guarantor Name 07/03/2024 1 [place] [facility] [place] [employer] Bushra Panchal [id number] Bushra Panchal 07/17/2024 1 [place] [facility] [place] OF PUBLIC AID Bushra Panhcal [id number] Bushra Panchal Notes Date Note Type Note Provider Name and Address Organization Details Recorded Time 07/03/2024 text/html New pt visit:ED fuv: Here with her . C/o vertigo and dizziness since 06/27/24. So she went to ED and got multiple testing there and it all came back good. So pt was d/c to home on Meclizine. Pt says her BP was high in ED and she checked at home and its still higher. H/o Depression and anxiety for last several years and she was on Lexapro and Buspirone in the past for it. Then she was feeling better, so she stopped them couple years ago. Denies any mood swings/SI/HI. Pt has been dealing with sinus pressure and symptoms for last few weeks and she is taking otc meds for it. Ryland Chong MD [address] [place] [address], [place], [address], [facility] [employer] 07/03/2024 17:41:13 07/17/2024 text/html Pt is here with her for f/u on her meds and chronic conditions. Overall, she is doing very much better. Her vertigo is almost gone for last 3-4 days. Her mood and anxiety is much improved too. Denies any problem with meds. C/o vertigo and dizziness since 06/27/24. So she went to ED and got multiple testing there and it all came back good. So pt was d/c to home on Meclizine. Pt says her BP was high in ED and she checked at home and its still higher. H/o Depression and anxiety for last several years and she was on Lexapro and Buspirone in the past for it. Then she was feeling better, so she stopped them couple years ago. Denies any mood swings/SI/HI. Pt has been dealing with sinus pressure and symptoms for last few weeks and she is taking otc meds for it. Ryland Chong MD [address] [place] [address], [facility] [address], [place], [address], [place] [facility] 07/17/2024 14:07:03 OBGyn Episode No OBEpisode recorded.
[2025-01-23 11:52] VITALS: BP 153/98; PULSE 72; RESP 12; O2SAT 100
[2025-01-23] MEDS: LORazepam (*CRX) 1 MG TABLET PO (12:04)
[2025-01-23 12:47] LABS: INR 0.9; Partial Thromboplastin Time 32.8 Seconds (22.3-36.8); Prothrombin Time 12.6 Seconds (11.1-14.7)
[2025-01-23 13:22] VITALS: BP 141/82; PULSE 64; RESP 19; O2SAT 97
== END 2025-01-23 13:29 | disposition home or self-care (01) ==
PROVIDERS: Emergency Provider Emergency Medicine; PCP Family Medicine
DX: N39.0 Urinary tract infection, site not specified (principal); F43.9 Reaction to severe stress, unspecified; F17.210 Nicotine dependence, cigarettes, uncomplicated; F41.9 Anxiety disorder, unspecified; F32.A Depression, unspecified
CPT/HCPCS: 36415; 70450; 71045; 80053; 81001; 81025; 82948; 84484; 85025; 85610; 85730; 93005; 99284; A9270